=== PATIENT | male | born 1990 | race Caucasian/White ===

== ENCOUNTER 2017-02-26 05:35 | Emergency (ER) | payer MEDICAID ==
[2017-02-26 14:25] LABS: CARBON DIOXIDE 26 mmol/L (21-32); CHLORIDE SERUM 104 mmol/L (98-107); GLUCOSE SERUM 117 mg/dL (74-106); POTASSIUM SERUM 3.6 mmol/L (3.5-5.1); SODIUM SERUM 138 mmol/L (136-145)
[2017-02-26 14:26] LABS: GFR1 > 60 mL/min
[2017-02-26 14:27] LABS: ALBUMIN 3.3 g/dL (3.4-5.0); ALKALINE PHOSPHATASE 90 U/L (46-116); ALT/SGPT 27 U/L (16-63); AMYLASE 43 U/L (25-115); AST/SGOT 23 U/L (15-37); BILIRUBIN TOTAL 0.32 mg/dL (0.20-1.00); CALCIUM 8.7 mg/dL (8.5-10.1)
[2017-02-26 14:28] LABS: LIPASE 66 IU/L (73-393)
[2017-02-26 16:37] LABS: AMPHETAMINE QUAL UR POSITIVE (NEG <=1000)
[2017-02-26 18:17] LABS: BASOPHIL % 0.2 % (0-2); PLATELET COUNT 247 x10^3mcL (130-400); RED CELL DISTRIBUTION WIDTH 13.1 % (11.5-14.5)
[2017-02-26 19:12] LABS: UA SPECIFIC GRAVITY 1.015 (1.005-1.035); urine erythrocyte NEGATIVE (NEGATIVE)
[2017-02-26 19:22] LABS: microscopic required? YES
== END 2017-02-26 10:40 | disposition home or self-care (01) ==
LOC: ED 05:35
DX: N20.2 Calculus of kidney with calculus of ureter (principal); F11.10 Opioid abuse, uncomplicated
CPT/HCPCS: 36415; J3010

== ENCOUNTER 2019-02-04 12:01 | Emergency (ER) | payer OTHER ==
[~2019-02-04] VITALS: Ht 160 cm; Wt 65.3 kg
[2019-02-04 12:04] VITALS: Ht 160 cm; Wt 65.3 kg
[2019-02-04 13:25] VITALS: BP 120/87
== END 2019-02-04 13:25 | disposition other institution (70) ==
LOC: ED 12:01
DX: Z02.89 Encounter for other administrative examinations (principal)

== ENCOUNTER 2020-02-12 03:20 | Emergency (ER) | payer OTHER ==
[~2020-02-12] VITALS: Ht 162.6 cm; Wt 81.6 kg
[2020-02-12 03:26] VITALS: Ht 162.6 cm; Wt 81.6 kg
[2020-02-12 03:48] LABS: BASOPHIL % 0.4 % (0-2); PLATELET COUNT 205 x10^3mcL (130-400); RED CELL DISTRIBUTION WIDTH 14.5 % (11.5-14.5)
[2020-02-12 04:06] LABS: CALCIUM 8.9 mg/dL (8.5-10.1); CARBON DIOXIDE 29.9 mmol/L (21-32); CHLORIDE SERUM 102 mmol/L (98-107); CREATININE SERUM 1.2 mg/dL (0.7-1.3); GFR1 > 60 mL/min; GLUCOSE SERUM 117 mg/dL (74-106); POTASSIUM SERUM 4.1 mmol/L (3.5-5.1); SODIUM SERUM 139 mmol/L (136-145)
[2020-02-12 06:54] VITALS: BP 113/58
== END 2020-02-12 06:54 | disposition home or self-care (01) ==
LOC: ED 03:20
PROVIDERS: Emergency Medicine
DX: T40.1X1A Poisoning by heroin, accidental (unintentional), initial encounter (principal); Y92.89 Other specified places as the place of occurrence of the external cause
CPT/HCPCS: J2405; J7030; Q0092